=== PATIENT | female | born 1955 ===

== ENCOUNTER → 2017-12-19 | Day surgery (SDC) | payer OTHER ==
[~2017-12-19] VITALS: Ht 160 cm; Wt 115.7 kg
[~2017-12-19] MED LIST: BISAC-EVAC10 M1 PR; CINNAMON500 M1 PO; DOCUSATE SODIU100 M3 PO; ECHINACEA400 MG PO; ECHINACEA500 M1 PO; GINGER500 MG PO; HYDROMORPHONE HC2 M1 PO; MASON NATURAL500 MG PO; MILK OF MA400 MG/52 PO; MULTI-DAY VITA1 EACH PO; MULTIVITAMIN1 SGL PO; OS-CAL 500+D31 EACH PO; TUMERIC PO; TYLENOL325 M1 PO; VITAMIN D31000 UNI2 PO
--- NOTE | 2017-12-19 10:19 | Operative Report ---
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 Anesthesia: general endotracheal tube, block Operative Indication: 62-year-old [id number] extreme pain and positive MRI risks and benefits explained and understood also left shoulder symptoms and before meals joint and impingement She is status post cervical decompression and also has carpal tunnel Operative/Procedure Note Note: After examination explanation and acceptance of risks and benefits patient was brought to the operating room and given antibiotics intravenously Kefzol 2 g a general anesthetic and a shoulder block risks to that she was placed on the table in the beachchair position Exceptional care was taken with her positioning due to her habitus Left shoulder injection under ultrasound guidance After sterile prep and drape the left shoulder was injected a ultrasound probe was used in the preoperative area to localize the subacromial and acromioclavicular intervals we now utilized the ultrasound information to achieve intra-articular location of the needle a 22-gauge was used with 40 mg of Depo-Medrol and and lidocaine and Marcaine this was infiltrated into the before meals joint We now again utilized the ultrasound information to achieve subacromial location of the needle and again the same solution was injected into the subacromial bursa Right shoulder surgery After sterile prep and drape bony landmarks were now marked and the arthroscope was entered through a posterior portal after sounding with a needle. Labral ectomy the posterior superior labrum had large amount of tearing it was resected and normalized this was not a [employer] lesion Biceps tenodesis The biceps was detached from the supraglenoid tubercle we went externally opened the biceps groove removed a large amount of perivascular tenosynovium created an 8 mm socket placed the biceps within and secured it tenodesis with an 8 mm biceps tenodesis for device by [employer] this was a bio composite implant Subscapularis was intact Rotator cuff repair She had a full-thickness tear of the entire supraspinatus and anterior portion of the infraspinatus tendon there was also a medial contribution appreciated at the musculotendinous junction underneath while doing glenohumeral arthroscopy The tendon was trimmed back to good tissue the juxta articular surface of the greater tuberosity was burred to punctate bleeding bone and medial anchor was placed this was a 5.5 mm triple loaded bio composite anchor by [employer] We now passed sutures to anterior mattresses and one posterior simple were tied down we then did a double second row using 24.5 bio push locks by [employer] Acromioclavicular arthroplasty We now resected the entire distal aspect of the clavicle the outer 11 mm were taken this was a formal arthroscopic Kerry procedure achieved using bone instruments Arthroscopic subacromial decompression We now took down the CA ligament and did a biplanar acromioplasty she had a truly massive anterior spur on the acromion this was removed and flattened in its entirety Other findings articular surfaces were grade 2-3 Conclusion we removed all loose chips and bits her biomechanics were good closed the portals with 4-0 Monocryl and strips a dressing was applied she returned to recovery with vital signs stable having tolerated the procedure well She will be discharged home from the outpatient area medications Percocet for pain Dr. Batista will see her in the office in [facility] and follow-up later this week her activities are modified per shoulder instruction sheet Surgeon Vin Anand personal care assistant surgeon Maury Batista
== END ==
LOC: STS 02:51
DX: M75.121 Complete rotator cuff tear or rupture of right shoulder, not specified as traumatic (principal); M24.9 Joint derangement, unspecified; M25.811 Other specified joint disorders, right shoulder; M75.21 Bicipital tendinitis, right shoulder; R12 Heartburn
CPT/HCPCS: J0131; J0171; J0690; J1030; J1100; J2250